=== PATIENT | female | born 1960 | race Caucasian/White ===

== ENCOUNTER 2020-08-07 15:59 | Inpatient (IN) | payer BC, MEDICARE ==
[2020-08-07] VITALS (118 sets, daily range): BP systolic 138; BP diastolic 64; PULSE 126; TEMP 98.2; O2SAT 94–99
[~2020-08-07] VITALS: Ht 165.1 cm; Wt 84.1 kg
[2020-08-07 17:14] LABS: BASO % 0.5 % (0.0-2.0); EOS # 0.1 (0.0-0.7); EOS % 1.1 % (0-4.0); GRAN # 5.4 (1.4-6.5); GRAN % 84.6 % (42.2-75.2); INR 1.4 (0.8-3.0); LYMPH # 0.6 (1.2-3.4); LYMPH % 9.5 % (20.0-51.0); MEAN CELL VOLUME 85 fl (80.0-100.0); MEAN CORPUSCULAR HGB CONC 31 g/dl (33.0-37.0); MEAN PLATELET VOLUME 12.1 fl (7.4-10.4); MONO # 0.3 (0.1-0.6); PLATELET COUNT 92 K/mm3 (130-400); PROTHROMBIN TIME 15.7 SECONDS (9.7-12.8); RED BLOOD COUNT 3.72 M/mm3 (4.10-5.30); REDCELL DISTRIBUTION WIDTH-CV 18.7 % (11.5-14.5)
[2020-08-07 17:16] LABS: PARTIAL THROMBOPLASTIN TIME 30.8 SECONDS (26.0-37.0)
[2020-08-07 17:18] LABS: ALBUMIN 3.2 gm/dL (3.5-5.0); BILIRUBIN,TOTAL 1.8 mg/dL (0.0-1.0); CALCIUM 8.4 mg/dL (8.4-10.2); CREATININE, serum 0.5 (0.52-1.25); POTASSIUM 4.9 mmol/L (3.4-5.0)
[2020-08-07 17:21] LABS: HEMATOCRIT 31.6 % (37.0-47.0); HEMOGLOBIN 9.8 g/dl (12.5-16.0); MEAN CORPUSCULAR HEMOGLOBIN 26 pg (27.0-31.0)
[2020-08-07] MEDS ORDERED: INDERAL 20MG20 MG PO (21:10)
[2020-08-07] MEDS ORDERED: JANUVIA 100MG100 MG PO (21:11)
[2020-08-07] MEDS ORDERED: SYNTHROID 0.0.025 MG PO (21:11)
[2020-08-07] MEDS ORDERED: GLUCOPHAGE XR500 M1 PO (21:11)
[2020-08-07] MEDS ORDERED: GLUCOTROL XL5 MG/TAB PO (21:12)
[2020-08-07] MEDS ORDERED: CUPRIMINE PO (21:13)
--- NOTE | 2020-08-07 21:15 | NUR ---
Received report from ED nurse
[2020-08-07 21:18] LABS: HEMATOCRIT 27.8 % (37.0-47.0); HEMOGLOBIN 8.4 g/dl (12.5-16.0)
--- NOTE | 2020-08-07 21:28 | NUR ---
Patient arrives to ICU room 2 via ED stretcher. Patient is able to ambulate to ICU bed with standby assistance. Patient denies any pain, although reports she feels slightly dizzy with movement. Initial vitals within normal limits, however, patient is in sinus tach with rates mid-high 120s. Patient is A&Ox4; no skin issues noted. Instructed patient regarding use of call light. Pilar MENDOZA, aware of patient's arrival to unit. No further needs noted at this time.
[2020-08-07] MEDS ORDERED: BASAGLAR K100 UNIT/1 SQ (22:16)
[2020-08-07 23:39] LABS: HEMATOCRIT 28.2 % (37.0-47.0); HEMOGLOBIN 8.7 g/dl (12.5-16.0)
[2020-08-08] VITALS (568 sets, daily range): BP systolic 105–136; BP diastolic 58–70; PULSE 73–118; TEMP 97.5–98.5; O2SAT 89–100
[2020-08-08 05:11] LABS: BASO % 0.4 % (0.0-2.0); EOS # 0.1 (0.0-0.7); EOS % 1.3 % (0-4.0); GRAN # 3.7 (1.4-6.5); GRAN % 70.6 % (42.2-75.2); LYMPH # 0.9 (1.2-3.4); LYMPH % 16.7 % (20.0-51.0); MEAN CELL VOLUME 85 fl (80.0-100.0); MEAN CORPUSCULAR HGB CONC 32 g/dl (33.0-37.0); MEAN PLATELET VOLUME 12.5 fl (7.4-10.4); MONO # 0.6 (0.1-0.6); MONO % 10.6 % (1.7-9.3); PLATELET COUNT 74 K/mm3 (130-400); RED BLOOD COUNT 2.82 M/mm3 (4.10-5.30); REDCELL DISTRIBUTION WIDTH-CV 19.2 % (11.5-14.5)
[2020-08-08 05:19] LABS: HEMATOCRIT 23.9 % (37.0-47.0); HEMOGLOBIN 7.6 g/dl (12.5-16.0); MEAN CORPUSCULAR HEMOGLOBIN 27 pg (27.0-31.0)
[2020-08-08 05:29] LABS: ALBUMIN 2.7 gm/dL (3.5-5.0); CALCIUM 8.1 mg/dL (8.4-10.2); CREATININE, serum 0.51 (0.52-1.25); POTASSIUM 3.8 mmol/L (3.4-5.0)
--- NOTE | 2020-08-08 07:50 | NUR ---
Report recieved from Miguelina HAWK. Blood continues to infuse via pump at this time without difficulty. Patient sleeps at this time. Call light in reach
[2020-08-08 10:08] LABS: HEMATOCRIT 28.6 % (37.0-47.0); HEMOGLOBIN 9.1 g/dl (12.5-16.0)
--- NOTE | 2020-08-08 12:09 | NUR ---
Initial visit; Patient thanked [employer] Mechanic for looking in on her and offering God's blessings and keeping her in [employer]ic's prayers.
--- NOTE | 2020-08-08 13:09 | NUR ---
To [facility] via cart with RN
--- NOTE | 2020-08-08 15:01 | NUR ---
Parts Analyst met with the patient to complete intake. The patient lives in [place] with her . The patient denies DME is use and is independent. The patient's PCP is Dr. No Mcmahon and patient receives medications from [facility] in [place]. The patient does not have advanced directives and was not interested in DPOA-HC form. The patient plans to return home at discharge. Her son will transport the patient home. Parts Analyst will monitor to ensure safest discharge disposition.
--- NOTE | 2020-08-08 15:51 | NUR ---
Report called to Al HAWK and will transfer patient to room 357
--- NOTE | 2020-08-08 16:30 | NUR ---
patient arrived to room 357 from ICU at this time, alert/oriented, vital signs stable, denies pain, transferre dto bed from w/c with stand by assist, IVF infusing, denies needs, call light in reach
--- NOTE | 2020-08-08 18:30 | NUR ---
PT IS CURRENTLY STABLE. DENIES NEEDS AT THIS TIME. FLUIDS ARE RUNNING, WELL THE SANDOSTATIN. VSS, AND PT WILL BEGIN BOWEL PREP FOR TOMORROW COLONOSCOPY. NO FURTHER CONCERNS AT THIS TIME.
[2020-08-09] VITALS (12 sets, daily range): BP systolic 120–146; BP diastolic 49–65; PULSE 81–100; TEMP 97.5–99.4
--- NOTE | 2020-08-09 06:41 | NUR ---
PT HAD UNEVENTFUL NIGHT. BOWEL PREP COMPLETED BEFORE MIDNIGHT. PT HAS REMAINED NPO SINCE MIDNIGHT. THE PATIENT HAS HAD CLEAR BM, AND NO OTHER CONCERNS. WILL ENDORSE TO DAY SHIFT RN.
[2020-08-09 08:23] LABS: BASO % 0.7 % (0.0-2.0); EOS # 0.2 (0.0-0.7); EOS % 5.4 % (0-4.0); GRAN # 2.1 (1.4-6.5); GRAN % 71.6 % (42.2-75.2); LYMPH # 0.4 (1.2-3.4); LYMPH % 14.2 % (20.0-51.0); MEAN CELL VOLUME 89 fl (80.0-100.0); MEAN CORPUSCULAR HGB CONC 31 g/dl (33.0-37.0); MEAN PLATELET VOLUME 12.3 fl (7.4-10.4); MONO # 0.2 (0.1-0.6); MONO % 7.8 % (1.7-9.3); PLATELET COUNT 55 K/mm3 (130-400); RED BLOOD COUNT 2.85 M/mm3 (4.10-5.30); REDCELL DISTRIBUTION WIDTH-CV 18.6 % (11.5-14.5)
[2020-08-09 08:33] LABS: ALBUMIN 2.5 gm/dL (3.5-5.0); BILIRUBIN,TOTAL 0.7 mg/dL (0.0-1.0); CALCIUM 7.7 mg/dL (8.4-10.2); CREATININE, serum 0.48 (0.52-1.25); HEMOGLOBIN 7.8 g/dl (12.5-16.0); MEAN CORPUSCULAR HEMOGLOBIN 27 pg (27.0-31.0); POTASSIUM 3.6 mmol/L (3.4-5.0); TOTAL PROTEIN 5.7 gm/dL (6.4-8.2)
[2020-08-09 08:34] LABS: HEMATOCRIT 25.3 % (37.0-47.0)
--- NOTE | 2020-08-09 10:25 | NUR ---
Pt assessment completed and charted, pt A&O, independent in room, on room air, breathing is even and unlabored. Pt has RFA IV that flushes w/o issue. HRRR, occasionally tachy, VSS, LS cta. Pt finished bowel prep last night, tolerated well per hourly shift. Pt down for colonoscopy and back to room at 1015. Pt A&O, denies pain, dizziness, N/V/D, chest pain. Pt VSS, on post op monitoring at this time. Pt remains NPO for abd US this afternoon. No further needs expressed at this time. Call light within reach.
--- NOTE | 2020-08-09 11:23 | NUR ---
Post op monitoring completed, pt doing well, VSS, laying in bed, awaiting abd US this afternoon.
--- NOTE | 2020-08-09 14:58 | NUR ---
Follow-up visit; Patient states she is doing ok and thanked Dry Cleaner Helper for looking in on her again today. Dry Cleaner Helper offered God's blessings and will continue to keep her in Dry Cleaner Helper's prayers.
--- NOTE | 2020-08-09 17:28 | NUR ---
pt doing well, tolerating food ok. Surgical consult placed w/ Dr. Gill, notified and will assess pt this evening. Pt denies any pain.
--- NOTE | 2020-08-09 21:45 | NUR ---
Patient assessed at this time. Alert and oriented x 4, and able to make needs known. Denies having pain and discomfort at this time. Peripheral IV to right forearm. LR running per orders. Stopped LR to run Zosyn. Flushed prior to and after Zosyn was ran, and LR restarted per orders due to medication not being compatible. Site without redness, warmth, swelling, and pian. LS CTA. Respirations even and unlabored. HRR. Telemetry in place. Capillary refill less than 3 seconds. Non-tenting skin turgor. BSA x 4. Abdomen soft and non-tender. No edema. Voices no questions, needs, or concerns at this time. Resting in bed with call light within reach.
[2020-08-09 22:18] LABS: HEMATOCRIT 23.9 % (37.0-47.0); HEMOGLOBIN 7.7 g/dl (12.5-16.0)
--- NOTE | 2020-08-09 23:45 | NUR ---
Patient complained of headache. Called [facility] and received order for PRN APAP, and given at this time. Voices no further questions, needs, or concerns at this time. Resting in bed with call light within reach.
[2020-08-10] VITALS (10 sets, daily range): BP systolic 114–173; BP diastolic 42–96; PULSE 87–109; TEMP 97.8–99.5
--- NOTE | 2020-08-10 06:02 | NUR ---
Patient has been resting in bed with call ligth within reach. Voices no questions, needs, or concerns at this time. Denies having pain and discomfort this shift. Continues on IV fluids per orders.
--- NOTE | 2020-08-10 07:00 | NUR ---
Bedside shift r eport received from CARINE Mo. PT i nbed resting with eyes closed, will continue to monitor.
[2020-08-10 07:37] LABS: MEAN CELL VOLUME 89 fl (80.0-100.0); MEAN CORPUSCULAR HGB CONC 31 g/dl (33.0-37.0); RED BLOOD COUNT 2.54 M/mm3 (4.10-5.30); REDCELL DISTRIBUTION WIDTH-CV 18.8 % (11.5-14.5)
[2020-08-10 07:46] LABS: ALBUMIN 2.4 gm/dL (3.5-5.0); BILIRUBIN,TOTAL 0.9 mg/dL (0.0-1.0); CALCIUM 7.4 mg/dL (8.4-10.2); CREATININE, serum 0.53 (0.52-1.25); POTASSIUM 3.2 mmol/L (3.4-5.0); TOTAL PROTEIN 5.5 gm/dL (6.4-8.2)
[2020-08-10 07:48] LABS: HEMATOCRIT 22.5 % (37.0-47.0); MEAN CORPUSCULAR HEMOGLOBIN 28 pg (27.0-31.0)
[2020-08-10 07:49] LABS: PLATELET COUNT 43 K/mm3 (130-400)
[2020-08-10 09:00] LABS: ANISOCYTOSIS 1+; BAND 2 % (0-10); EOSINOPHIL 4 % (0-4); HYPOCHROMIA 1+; LYMPHOCYTE 23 % (20.0-51.0); METAMYELOCYTE 1 % (0-0); NEUTROPHILS 64 % (42.0-75.2); PLATELET ESTIMATE DECREASED (NORMAL)
--- NOTE | 2020-08-10 09:41 | NUR ---
Follow-up visit; Patient thanked for looking in on her and bringing her a Daily prayer book. wished Osiris well.
--- NOTE | 2020-08-10 11:32 | NUR ---
PT resting in bed. Swelling to BUE but espeically RFA. Denies needs, pain, stools, nausea, or vomiting. Resting quietly, taking PO well. Reviewed lab results this am. Will continue to monitor.
--- NOTE | 2020-08-10 15:44 | NUR ---
Remained with pt for first 15 minutes of PRBCs transfusion. Pt educated on s/sx of a reaction, no sign of a reaction taking place. Update provided to oldest son Nii. Pt tolerating well, verified wiht 2nd RN before initiating. denies needs, will continue to monitor.
--- NOTE | 2020-08-10 18:56 | NUR ---
1 U PRBCS completed. Pt doing well, no s/sx of a transfusion reaction. Pt up to bathroom often to urinate. Denies needs, will give bedsie shift report to nightshift nruse who will resume care.
[2020-08-10 20:32] LABS: HEMOGLOBIN 9.3 g/dl (12.5-16.0)
--- NOTE | 2020-08-10 23:28 | NUR ---
PATIENT IS CALM DUE MEDICATION GIVEN,ASSESSMENT DONE DENIES PAIN.NO NEEDS AT THIS TIME.
[2020-08-11 00:06] VITALS: BP 129/55; PULSE 90; TEMP 98.5
[2020-08-11 03:16] VITALS: BP 134/53; PULSE 80; TEMP 97.3
--- NOTE | 2020-08-11 05:46 | NUR ---
PATIENT HAD A GOOD NIGHT REST,DUE MEDS GIVEN.DENIES PAIN NO NEEDS AT THIS TIME
[2020-08-11 06:59] LABS: MEAN CELL VOLUME 89 fl (80.0-100.0); MEAN CORPUSCULAR HGB CONC 32 g/dl (33.0-37.0); MEAN PLATELET VOLUME 11.9 fl (7.4-10.4); RED BLOOD COUNT 3.01 M/mm3 (4.10-5.30); REDCELL DISTRIBUTION WIDTH-CV 18.6 % (11.5-14.5)
[2020-08-11 07:10] LABS: HEMATOCRIT 26.7 % (37.0-47.0); HEMOGLOBIN 8.4 g/dl (12.5-16.0); MEAN CORPUSCULAR HEMOGLOBIN 28 pg (27.0-31.0); PLATELET COUNT 41 K/mm3 (130-400)
[2020-08-11 07:11] LABS: CALCIUM 7.7 mg/dL (8.4-10.2); POTASSIUM 3.5 mmol/L (3.4-5.0)
[2020-08-11 07:21] LABS: CREATININE, serum 0.52 (0.52-1.25)
[2020-08-11 07:51] VITALS: BP 144/59; PULSE 90; TEMP 97.8
[2020-08-11 07:58] LABS: BAND 2 % (0-10); BASOPHIL 2 % (0-2); EOSINOPHIL 2 % (0-4); LYMPHOCYTE 16 % (20.0-51.0); NEUTROPHILS 72 % (42.0-75.2)
[2020-08-11 07:59] LABS: ANISOCYTOSIS 1+; HYPOCHROMIA 2+
[2020-08-11 08:00] LABS: PLATELET ESTIMATE DECREASED (NORMAL)
--- NOTE | 2020-08-11 09:13 | NUR ---
Follow-up visit; Patient thanked Supervisor Pressing Department for looking in on her and keeping her in [employer]'s prayers.
--- NOTE | 2020-08-11 11:34 | NUR ---
Pt assessment completed and charted, medications administered per mar. Pt A&O, independent in room, on room air, breathing is even and unlabored. LS cta, HRRR, no issues on tele. RFA INT IV flushes well, a little leaky, will continue to monitor. No edema noted. pt denies N/V/D, states she has some "loose stools" but denies blood in stool. Pulses strong bilaterally. Pt denies pain, chest pain, dizziness. No further needs expressed at this time. , Bobby called wanting update on POC, stated he "didn't understand why we need to keep her in the hospital, her numbers are always low and that can be monitored at home". This nurse discussed family concerns w/ claude lopez and hospitalist. Oncology consult placed, they will follow up with Dr. Alcala and his recs.
[2020-08-11 12:56] VITALS: BP 141/67; PULSE 89; TEMP 97.9; TEMP 98.6
--- NOTE | 2020-08-11 14:17 | NUR ---
The patient is to tentatively d/c tomorrow, 08/12. SW met with the patient and presented and read the IM form outloud to her. The patient verbalized understanding and gave SW approval to sign the form on her behalf. SW provided her with a copy. The patient states that she is ready to get back home. No additional needs at this time.
--- NOTE | 2020-08-11 16:20 | NUR ---
This nurse talked to pt [place], per pt request, POC discussed, verbalized understanding, all questions answered. HENRY Dietz talked w/ Dr. montalvo and pt , agreement to stay another night and monitor labs. Pt verbalizes understanding.
[2020-08-11 16:56] VITALS: BP 148/72; PULSE 95; TEMP 98.7
[2020-08-11 20:00] VITALS: BP 145/59; PULSE 94; TEMP 98.5
--- NOTE | 2020-08-11 20:52 | NUR ---
PATIENT IS CALM IN THE ROOM,DUE MEDS GIVEN,ASSESSMENT DONE.DENIES PAIN.NO NEEDS AT THIS TIME
[2020-08-12 00:45] VITALS: BP 114/48; PULSE 87; TEMP 98.3
[2020-08-12 03:27] VITALS: BP 142/71; PULSE 88; TEMP 98.1
--- NOTE | 2020-08-12 05:42 | NUR ---
PATIENT HAD A RESTFUL NIGHT,DUE MEDS GIVEN.DENIES PAIN.NO NEEDS AT THIS TIME.
[2020-08-12 06:23] LABS: BASO % 0.5 % (0.0-2.0); EOS # 0.1 (0.0-0.7); EOS % 5.5 % (0-4.0); GRAN # 1.2 (1.4-6.5); LYMPH # 0.4 (1.2-3.4); MEAN CELL VOLUME 87 fl (80.0-100.0); MEAN CORPUSCULAR HGB CONC 32 g/dl (33.0-37.0); MEAN PLATELET VOLUME 11.8 fl (7.4-10.4); MONO # 0.2 (0.1-0.6); MONO % 10.5 % (1.7-9.3); RED BLOOD COUNT 3.11 M/mm3 (4.10-5.30); REDCELL DISTRIBUTION WIDTH-CV 18.6 % (11.5-14.5)
[2020-08-12 06:27] LABS: ALBUMIN 2.8 gm/dL (3.5-5.0); BILIRUBIN,TOTAL 1.2 mg/dL (0.0-1.0); CALCIUM 8.1 mg/dL (8.4-10.2); CREATININE, serum 0.53 (0.52-1.25); POTASSIUM 3.6 mmol/L (3.4-5.0); TOTAL PROTEIN 6.3 gm/dL (6.4-8.2)
[2020-08-12 06:45] LABS: HEMATOCRIT 26.9 % (37.0-47.0); HEMOGLOBIN 8.7 g/dl (12.5-16.0); MEAN CORPUSCULAR HEMOGLOBIN 28 pg (27.0-31.0)
[2020-08-12 06:46] LABS: PLATELET COUNT 41 K/mm3 (130-400)
--- NOTE | 2020-08-12 07:00 | NUR ---
Report received from Veto Rn. Pt in bed resting, denies needs, will continue to monitor.
[2020-08-12 07:40] VITALS: BP 134/64; PULSE 76; TEMP 97.7
--- NOTE | 2020-08-12 09:00 | NUR ---
Pt doing well, anticipating discharge todya. Up ad deya, reviewed labs. INT to RFA. WIll continue to monitor.
--- NOTE | 2020-08-12 09:55 | NUR ---
Follow-up visit; Patient thanked for looking in on her while she was here with us and today for offering God speed as she departs.
[2020-08-12 11:43] VITALS: BP 151/63; PULSE 85; TEMP 98.6
--- NOTE | 2020-08-12 15:00 | NUR ---
Discharge teaching completed at this time. INT dc'd ,tip intact. Discharge teaching reviewed, f/u appointments reviewed, education reviewed. Anwered all questions. Pt left with medical staff, family to drive home, criteria met. Pt left with all belongings. Criteria met.
== END 2020-08-12 15:00 | disposition home or self-care (01) | DRG 378 ==
LOC: COL.ER 15:59 → MEDICAL 18:33 → ICU 18:33 → COL.ER 18:33 → JCC 18:33 → ICU 21:37 → MEDICAL 08-08 16:37
PROVIDERS: Emergency Medicine; Nurse Practitioner Primary Care; Physician Assistant; ADMIT Hospitalist
PROC: 0DB78ZX Excision of Stomach, Pylorus, Via Natural or Artificial Opening Endoscopic, Diagnostic (ICD-10-PCS; principal; 2020-08-07)
DX: K55.21 Angiodysplasia of colon with hemorrhage (principal); D61.818 Other pancytopenia; I78.0 Hereditary hemorrhagic telangiectasia; D50.9 Iron deficiency anemia, unspecified; E03.9 Hypothyroidism, unspecified; E11.9 Type 2 diabetes mellitus without complications; K74.60 Unspecified cirrhosis of liver; Z20.828 Contact with and (suspected) exposure to other viral communicable diseases; D69.6 Thrombocytopenia, unspecified; E83.01 Wilson's disease; K80.20 Calculus of gallbladder without cholecystitis without obstruction; F32.9 Major depressive disorder, single episode, unspecified
CPT/HCPCS: 99222-AI; 99232-AI; 99233-AI; 99239; C9113; J1815; J2354; J2543; J2704; J3010; J7030; J7040; J7120; P9016